=== PATIENT | female | born 1985 | race Caucasian/White ===

== ENCOUNTER 2018-12-25 15:51 | Emergency (ER) | payer MEDICAID ==
[~2018-12-25] VITALS: Ht 144.8 cm; Wt 52.2 kg
[~2018-12-25 15:51] MED LIST: ACETAMINOPHEN-1 EAC1 PO; AMOXICILLIN 50500 M1 PO; AMOXICILLIN 50500 MG PO; AMOXICILLIN875 MG PO; ANTIVERT25 MG PO; APAP W/CODEINE1 TA2 PO; APAP500 PO; ATIVAN0.5 MG PO; CEPHALEXIN 500500 M1; CLEOCIN HCL150 MG PO; CYMBALTA20 MG PO; DELSYM COU30 MG/5 M1 PO; EXCEDRIN CAPLE1 EACH PO; FLEXERIL PO; IBUPROFEN 200200 M1 PO; IBUPROFEN 800800 M1 PO; KEFLEX500 MG PO; LIDOCAINE VISC100 M1 MM; LIDOCAINE VISC100 M1 SWISH&SPIT; MEDROLDOSEPACK PO; MOTION RELIEF25 MG PO; NAPROSYN500 MG PO; NEURONTIN300 MG PO; NORCO 5-325 TA1 EACH PO; NYSTATIN15 GM TP; ONDANSETRON HCL4 M2 PO; ORADENT 0.1% DEN5 G1; PENICILLIN V P500 MG PO; POLYMYXIN B/TMP10 ML OP; PROMETHAZINE-D120 ML PO; TRAMADOL 50 MG50 MG PO; TYLENOL325 MG PO; VALIUM2 MG PO; ZPAK PO; ZYRTEC 10 MG TA10 M1 PO; ZYRTEC10 MG PO; [UNRECOGNIZED DRUG - SUPPLY] MC
[2018-12-25 16:04] VITALS: BP 117/74
[2018-12-25] MEDS ORDERED: ATIVAN0.5 MG PO (16:07)
[2018-12-25] MEDS ORDERED: BACTROBAN15 GM TOP (16:16)
[2018-12-25] MEDS ORDERED: ZOFRAN ODT4 MG PO (16:16)
== END 2018-12-25 16:24 | disposition home or self-care (01) ==
LOC: M.ERS 15:51
DX: B34.9 Viral infection, unspecified (principal); R11.2 Nausea with vomiting, unspecified; L98.9 Disorder of the skin and subcutaneous tissue, unspecified; F90.9 Attention-deficit hyperactivity disorder, unspecified type; F31.9 Bipolar disorder, unspecified; F41.9 Anxiety disorder, unspecified; F42.9 Obsessive-compulsive disorder, unspecified

== ENCOUNTER 2019-01-29 13:25 | Emergency (ER) | payer MEDICAID ==
[~2019-01-29] VITALS: Ht 144.8 cm; Wt 58.5 kg
[~2019-01-29 13:25] MED LIST changes: +BACTROBAN15 GM TOP; +ZOFRAN ODT4 MG PO
[2019-01-29] MEDS ORDERED: ACYCLOVIR 400400 MG PO (13:40)
[2019-01-29 14:44] VITALS: BP 116/78
== END 2019-01-29 14:45 | disposition home or self-care (01) ==
LOC: M.ERS 13:25
DX: S09.8XXA Other specified injuries of head, initial encounter (principal); M54.2 Cervicalgia; F90.9 Attention-deficit hyperactivity disorder, unspecified type; F31.9 Bipolar disorder, unspecified; F41.9 Anxiety disorder, unspecified; Z98.890 Other specified postprocedural states; W22.8XXA Striking against or struck by other objects, initial encounter; Y93.89 Activity, other specified; Y92.89 Other specified places as the place of occurrence of the external cause; Y99.8 Other external cause status

== ENCOUNTER 2019-06-23 20:51 | Emergency (ER) | payer MEDICAID ==
[~2019-06-23] VITALS: Ht 144.8 cm; Wt 58.5 kg
[~2019-06-23 20:51] MED LIST changes: +ACYCLOVIR 400400 MG PO; +NAPROSYN500 M1 PO
[2019-06-23] MEDS ORDERED: PROMETH-CODEIN 65 ML PO (22:20)
[2019-06-23] MEDS ORDERED: AUGMENTIN 875-1 EACH PO (22:20)
[2019-06-23 22:30] VITALS: BP 115/65
== END 2019-06-23 22:30 | disposition home or self-care (01) ==
LOC: M.ERS 20:51
DX: J18.9 Pneumonia, unspecified organism (principal); R06.02 Shortness of breath; H92.03 Otalgia, bilateral; F90.9 Attention-deficit hyperactivity disorder, unspecified type; F32.9 Major depressive disorder, single episode, unspecified; F41.9 Anxiety disorder, unspecified; Z88.8 Allergy status to other drugs, medicaments and biological substances

== ENCOUNTER 2019-06-24 23:01 | Emergency (ER) | payer MEDICAID ==
[~2019-06-24] VITALS: Ht 144.8 cm; Wt 58.5 kg
[~2019-06-24 23:01] MED LIST changes: +AUGMENTIN 875-1 EACH PO; +PROMETH-CODEIN 65 ML PO
[2019-06-25] MEDS ORDERED: XANAX 1 MG TABLE1 MG PO (00:52)
[2019-06-25] MEDS ORDERED: ALBUTEROL2.5 MG/31 INH (00:52)
[2019-06-25] MEDS ORDERED: LORAZEPAM 0.50.5 M1 PO (01:51)
[2019-06-25 01:55] VITALS: BP 106/63
== END 2019-06-25 01:58 | disposition home or self-care (01) ==
LOC: M.ERS 23:01
DX: J18.9 Pneumonia, unspecified organism (principal); F90.9 Attention-deficit hyperactivity disorder, unspecified type; F31.9 Bipolar disorder, unspecified; F41.9 Anxiety disorder, unspecified; F42.9 Obsessive-compulsive disorder, unspecified; Z88.8 Allergy status to other drugs, medicaments and biological substances; Z98.890 Other specified postprocedural states

== ENCOUNTER 2019-06-30 21:06 | Emergency (ER) | payer MEDICAID ==
[~2019-06-30] VITALS: Ht 144.8 cm; Wt 58.5 kg
[~2019-06-30 21:06] MED LIST changes: +ALBUTEROL2.5 MG/31 INH; +LORAZEPAM 0.50.5 M1 PO; +XANAX 1 MG TABLE1 MG PO
[2019-06-30 21:53] LABS: URINE BILIRUBIN NEGATIVE (Negative); URINE BLOOD 2+ (Negative); URINE CLARITY CLEAR; URINE COLOR STRAW; URINE GLUCOSE-RANDOM NEGATIVE (Negative); URINE KETONES NEGATIVE (Negative); URINE LEUKOCYTES-REFLEX NEGATIVE (Negative); URINE NITRITE-REFLEX NEGATIVE (Negative); URINE PROTEIN NEGATIVE (Negative); URINE SPECIFIC GRAVITY <= 1.005 (1.005-1.030); URINE UROBILINOGEN 0.2 E.U./dl (0.2-1.0)
[2019-06-30 22:18] LABS: CASTS None Seen /LPF (None Seen); SQUAMOUS 4-10 Moderate /LPF (0-3)
[2019-06-30 22:19] LABS: BACTERIA-REFLEX 1-9 Few /HPF (None Seen); CRYSTALS None Seen /LPF (None Seen); URINE RBC 0-2 Rare /HPF (0-2); URINE WBC-REFLEX 0-5 Rare /HPF (0-5)
[2019-06-30] MEDS ORDERED: XARELTO15 MG PO (23:52)
[2019-06-30] MEDS ORDERED: DIFLUCAN150 MG PO (23:53)
[2019-07-01] MEDS ORDERED: KETOCONAZOLE15 GM TOP (00:05)
[2019-07-01 00:37] VITALS: BP 107/59
== END 2019-07-01 00:40 | disposition home or self-care (01) ==
LOC: M.ERS 21:06
PROVIDERS: Emergency Medicine
DX: N76.0 Acute vaginitis (principal); I82.611 Acute embolism and thrombosis of superficial veins of right upper extremity; F90.9 Attention-deficit hyperactivity disorder, unspecified type; F32.9 Major depressive disorder, single episode, unspecified; F41.9 Anxiety disorder, unspecified; Z88.6 Allergy status to analgesic agent; Z98.890 Other specified postprocedural states

== ENCOUNTER 2019-07-19 16:51 | Emergency (ER) | payer MEDICAID ==
[~2019-07-19] VITALS: Ht 144.8 cm; Wt 56.7 kg
[~2019-07-19 16:51] MED LIST changes: +DIFLUCAN150 MG PO; +KETOCONAZOLE15 GM TOP; +XARELTO15 MG PO
[2019-07-19 17:04] VITALS: BP 124/80
== END 2019-07-19 17:19 | disposition home or self-care (01) ==
LOC: M.ERS 16:51
DX: L85.3 Xerosis cutis (principal); F90.9 Attention-deficit hyperactivity disorder, unspecified type; F31.9 Bipolar disorder, unspecified; F41.9 Anxiety disorder, unspecified; Z88.6 Allergy status to analgesic agent; Z98.890 Other specified postprocedural states

== ENCOUNTER 2019-08-01 18:53 | Emergency (ER) | payer MEDICAID ==
[~2019-08-01] VITALS: Ht 144.8 cm; Wt 56.7 kg
[2019-08-01] MEDS ORDERED: ELIQUIS2.5 MG PO (18:59)
[2019-08-01] MEDS ORDERED: DIFLUCAN150 M1 PO (19:25)
[2019-08-01] MEDS ORDERED: ZPAK PO (19:25)
[2019-08-01] MEDS ORDERED: ZANAFLEX4 MG PO (19:25)
[2019-08-01 19:36] VITALS: BP 122/74
== END 2019-08-01 19:37 | disposition home or self-care (01) ==
LOC: M.ERS 18:53
DX: S16.1XXA Strain of muscle, fascia and tendon at neck level, initial encounter (principal); J20.9 Acute bronchitis, unspecified; H92.02 Otalgia, left ear; F41.9 Anxiety disorder, unspecified; F90.9 Attention-deficit hyperactivity disorder, unspecified type; F31.9 Bipolar disorder, unspecified; Z88.6 Allergy status to analgesic agent; Z98.890 Other specified postprocedural states; X58.XXXA Exposure to other specified factors, initial encounter; Y93.89 Activity, other specified; Y92.89 Other specified places as the place of occurrence of the external cause; Y99.8 Other external cause status

== ENCOUNTER 2019-09-09 15:35 | Emergency (ER) | payer MEDICAID ==
[~2019-09-09] VITALS: Ht 157.5 cm; Wt 49.9 kg
[~2019-09-09 15:35] MED LIST changes: +DIFLUCAN150 M1 PO; +ELIQUIS2.5 MG PO; +ZANAFLEX4 MG PO
[2019-09-09 15:57] LABS: URINE BILIRUBIN NEGATIVE (Negative); URINE BLOOD NEGATIVE (Negative); URINE CLARITY CLEAR; URINE COLOR YELLOW; URINE GLUCOSE-RANDOM NEGATIVE (Negative); URINE KETONES NEGATIVE (Negative); URINE NITRITE-REFLEX NEGATIVE (Negative); URINE PROTEIN NEGATIVE (Negative); URINE SPECIFIC GRAVITY 1.015 (1.005-1.030); URINE UROBILINOGEN 0.2 E.U./dl (0.2-1.0)
[2019-09-09 15:59] LABS: URINE LEUKOCYTES-REFLEX 3+ (Negative)
[2019-09-09 16:07] LABS: SQUAMOUS >10 Many /LPF (0-3)
[2019-09-09 16:08] LABS: BACTERIA-REFLEX >30 Many /HPF (None Seen); MUCUS 0-3 Light strn/LPF (None Seen); URINE RBC 0-2 Rare /HPF (0-2)
[2019-09-09] MEDS ORDERED: DOXYCYCLINE 10100 MG PO ×2 (16:08→16:09)
[2019-09-09 16:09] LABS: CASTS None Seen /LPF (None Seen); CRYSTALS None Seen /LPF (None Seen)
[2019-09-09] MEDS ORDERED: ONDANSETRON HCL4 M2 PO ×2 (16:22)
[2019-09-09 16:25] VITALS: BP 139/79
== END 2019-09-09 16:27 | disposition home or self-care (01) ==
LOC: M.ERS 15:35
PROVIDERS: Nurse Practitioner Family
DX: A59.9 Trichomoniasis, unspecified (principal); N72 Inflammatory disease of cervix uteri; F90.9 Attention-deficit hyperactivity disorder, unspecified type; F31.9 Bipolar disorder, unspecified; F41.9 Anxiety disorder, unspecified; Z88.6 Allergy status to analgesic agent; Z98.890 Other specified postprocedural states

== ENCOUNTER 2019-09-26 12:28 | Emergency (ER) | payer MEDICAID ==
[~2019-09-26] VITALS: Ht 144.8 cm; Wt 70.3 kg
[~2019-09-26 12:28] MED LIST changes: +DOXYCYCLINE 10100 MG PO
[2019-09-26 12:59] LABS: URINE BILIRUBIN NEGATIVE (Negative); URINE BLOOD NEGATIVE (Negative); URINE CLARITY CLEAR; URINE COLOR YELLOW; URINE GLUCOSE-RANDOM NEGATIVE (Negative); URINE KETONES NEGATIVE (Negative); URINE LEUKOCYTES-REFLEX NEGATIVE (Negative); URINE NITRITE-REFLEX NEGATIVE (Negative); URINE PROTEIN NEGATIVE (Negative); URINE SPECIFIC GRAVITY <= 1.005 (1.005-1.030); URINE UROBILINOGEN 0.2 E.U./dl (0.2-1.0)
[2019-09-26 13:03] LABS: ABSOLUTE EOSINOPHILS 0.2 thou/uL (0.0-0.7); ABSOLUTE LYMPHOCYTES 2.5 thou/uL (0.8-5.3); ABSOLUTE MONOCYTES 0.5 thou/uL (0.0-1.2); ABSOLUTE NEUTROPHILS 3.3 thou/uL (1.6-8.1); BASOPHILS 0.3 %; EOSINOPHILS 3.4 %; HEMOGLOBIN 13.9 gm/dL (12.0-15.0); MCH 31.3 pg (26.0-34.0); MCHC 33.9 g/dL (28.0-37.0); MCV 92.2 fL (80.0-100.0); MONOCYTES 6.9 %; MPV 7.9 fl. (7.2-11.1); NUCLEATED RBCS 0 /100WBC; PLATELET COUNT* 323 thou/uL (150-400); POLYS 50.4 %; RBC 4.44 mil/uL (4.20-5.00); RDW-CV 13.3 % (10.5-14.5); WBC 6.5 thou/uL (4.0-11.0)
[2019-09-26 13:10] LABS: CALCIUM 9.5 mg/dL (8.5-10.1); CREATININE 0.9 mg/dL (0.6-1.3); POTASSIUM 3.9 mmol/L (3.5-5.1)
[2019-09-26 13:14] LABS: TOTAL BILIRUBIN 0.5 mg/dL (<0.1-1.0); TOTAL PROTEIN 6.8 g/dL (6.4-8.2)
[2019-09-26] MEDS ORDERED: CITRATE OF MAG296 ML PO ×2 (13:50→13:52)
[2019-09-26] MEDS ORDERED: MIRALAX119 GM PO ×2 (13:50→13:52)
[2019-09-26 13:58] VITALS: BP 109/77
== END 2019-09-26 13:59 | disposition home or self-care (01) ==
LOC: M.ERS 12:28
PROVIDERS: Nurse Practitioner Family
DX: K59.00 Constipation, unspecified (principal); F41.9 Anxiety disorder, unspecified; F31.9 Bipolar disorder, unspecified; F90.9 Attention-deficit hyperactivity disorder, unspecified type; Z88.6 Allergy status to analgesic agent; Z98.890 Other specified postprocedural states

== ENCOUNTER 2019-10-03 18:45 | Emergency (ER) | payer MEDICAID ==
[~2019-10-03] VITALS: Ht 144.8 cm; Wt 59.0 kg
[~2019-10-03 18:45] MED LIST changes: +CITRATE OF MAG296 ML PO; +MIRALAX119 GM PO
[2019-10-03] MEDS ORDERED: ZOVIRAX400 MG PO (18:59)
[2019-10-03 19:25] LABS: MCH 31.3 pg (26.0-34.0)
[2019-10-03 19:27] LABS: ABSOLUTE BASOPHILS 0.1 thou/uL (0.0-0.2); ABSOLUTE EOSINOPHILS 0.2 thou/uL (0.0-0.7); ABSOLUTE LYMPHOCYTES 3.5 thou/uL (0.8-5.3); ABSOLUTE MONOCYTES 0.4 thou/uL (0.0-1.2); ABSOLUTE NEUTROPHILS 3.5 thou/uL (1.6-8.1); BASOPHILS 1.3 %; HEMATOCRIT 41.3 % (37.0-47.0); LYMPHOCYTES 45.7 %; MCHC 33.8 g/dL (28.0-37.0); MCV 92.5 fL (80.0-100.0); MONOCYTES 4.9 %; MPV 7.8 fl. (7.2-11.1); NUCLEATED RBCS 0 /100WBC; PLATELET COUNT* 338 thou/uL (150-400); POLYS 45.1 %; RBC 4.47 mil/uL (4.20-5.00); WBC 7.7 thou/uL (4.0-11.0)
[2019-10-03 19:33] LABS: CREATININE 0.9 mg/dL (0.6-1.3); POTASSIUM 3.7 mmol/L (3.5-5.1)
[2019-10-03 19:34] LABS: URINE BILIRUBIN NEGATIVE (Negative); URINE BLOOD NEGATIVE (Negative); URINE CLARITY CLEAR; URINE COLOR STRAW; URINE GLUCOSE-RANDOM NEGATIVE (Negative); URINE KETONES NEGATIVE (Negative); URINE LEUKOCYTES-REFLEX NEGATIVE (Negative); URINE NITRITE-REFLEX NEGATIVE (Negative); URINE PROTEIN NEGATIVE (Negative); URINE SPECIFIC GRAVITY <= 1.005 (1.005-1.030); URINE UROBILINOGEN 0.2 E.U./dl (0.2-1.0)
[2019-10-03 19:37] LABS: TOTAL BILIRUBIN 0.2 mg/dL (<0.1-1.0); TOTAL PROTEIN 6.9 g/dL (6.4-8.2)
[2019-10-03] MEDS ORDERED: ONDANSETRON HCL4 M2 PO (20:20)
[2019-10-03 20:36] VITALS: BP 132/72
--- NOTE | 2019-10-04 10:36 | EKG ---
[place] [address] ELECTROCARDIOGRAM REPORT Name: ANTONINO MONTES Room: [facility]#: [id number] Admission: 10/03/19 Attend Phys: Discharge: 10/03/19 Date of : 87 Report #: [id number] THIS REPORT FOR: //name// [facility] ED Test Date: 2019-10-03 Test Time: 19:22:27 Pat Name: ANTONINO MONTES Department: Room: Gender: F Cycle Consultant: [place] : 1985 Requested By: Mary Estevez Order Number: [id number] MD: Didier Farias Measurements Intervals [place] Rate: 82 P: 55 DE: 202 QRS: 31 QRSD: 91 T: 24 QT: 372 QTc: 435 Interpretive Statements Sinus rhythm Borderline prolonged [place] interval Baseline wander in lead(s) V1 Compared to ECG 01/20/2013 20:02:07 No significant changes Electronically Signed On 10-04-2019 10:36:47 FRUIT AND VEGETABLE PARER by Didier Farias [email or web address] <ELECTRONICALLY SIGNED> By: Didier Farias MD, [facility] 10/04/19 1036 21 21 Didier Farias MD, FAC /EPI
== END 2019-10-03 20:37 | disposition home or self-care (01) ==
LOC: M.ERS 18:45
PROVIDERS: Nurse Practitioner Family
DX: R42 Dizziness and giddiness (principal); R11.0 Nausea; K59.00 Constipation, unspecified; F90.9 Attention-deficit hyperactivity disorder, unspecified type; F31.9 Bipolar disorder, unspecified; F41.9 Anxiety disorder, unspecified; Z88.6 Allergy status to analgesic agent

== ENCOUNTER 2019-10-27 17:31 | Emergency (ER) | payer MEDICAID ==
[~2019-10-27] VITALS: Ht 144.8 cm; Wt 57.6 kg
[~2019-10-27 17:31] MED LIST changes: +ZOVIRAX400 MG PO
[2019-10-27] MEDS ORDERED: NOHOMEMEDICATIONS (17:45)
[2019-10-27 18:13] LABS: CALCIUM 9.2 mg/dL (8.5-10.1); CREATININE 0.9 mg/dL (0.6-1.3); POTASSIUM 3.8 mmol/L (3.5-5.1)
[2019-10-27] MEDS ORDERED: NORCO 5-325 TA1 EAC1 PO (18:26)
[2019-10-27] MEDS ORDERED: FLEXERIL PO (18:26)
[2019-10-27 18:35] VITALS: BP 118/68
--- NOTE | 2019-10-28 10:20 | EKG ---
[place] [address] ELECTROCARDIOGRAM REPORT Name: ANTONINO MONTES Room: [facility]#: [id number] Admission: 10/27/19 Attend Phys: Discharge: 10/27/19 Date of : [birth year] Report #: [id number] THIS REPORT FOR: //name// [facility] ED Test Date: 2019-10-27 Test Time: 18:02:06 Pat Name: ANTONINO MONTES Department: Room: Gender: F Bell Cleaner: ANGIE : 1985 Requested By: Ry Reed Order Number: [id number] MD: Jace Morataya Measurements Intervals [place] Rate: 68 P: 56 MA: 202 QRS: 40 QRSD: 94 T: 29 QT: 389 QTc: 414 Interpretive Statements Sinus rhythm Borderline prolonged MA interval Baseline wander in lead(s) V1 Compared to ECG 10/03/2019 19:22:27 No significant changes Electronically Signed On 10-28-2019 10:20:29 QUALITY REVIEWER by Jace Morataya [email or web address] <ELECTRONICALLY SIGNED> By: Jace Morataya MD, [facility] 10/28/19 1020 01 01 Jace Morataya MD, [facility] /EPI
== END 2019-10-27 18:36 | disposition home or self-care (01) ==
LOC: M.ERS 17:31
PROVIDERS: Emergency Medicine Emergency Medical Services
DX: S46.002A Unspecified injury of muscle(s) and tendon(s) of the rotator cuff of left shoulder, initial encounter (principal); M25.512 Pain in left shoulder; M54.2 Cervicalgia; F41.9 Anxiety disorder, unspecified; F90.9 Attention-deficit hyperactivity disorder, unspecified type; F32.9 Major depressive disorder, single episode, unspecified; Z88.8 Allergy status to other drugs, medicaments and biological substances; X50.0XXA Overexertion from strenuous movement or load, initial encounter; Y93.89 Activity, other specified; Y92.89 Other specified places as the place of occurrence of the external cause; Y99.8 Other external cause status

== ENCOUNTER 2020-01-14 17:46 | Emergency (ER) | payer MEDICAID ==
[~2020-01-14] VITALS: Ht 144.8 cm; Wt 54.9 kg
[~2020-01-14 17:46] MED LIST changes: +NOHOMEMEDICATIONS; +NORCO 5-325 TA1 EAC1 PO
[2020-01-14] MEDS ORDERED: RISPERDAL0.5 MG PO (18:05)
[2020-01-14 19:43] VITALS: BP 126/76
--- NOTE | 2020-01-15 16:46 | EKG ---
[place] [address] ELECTROCARDIOGRAM REPORT Name: ANTONINO MONTES Room: [facility]#: [id number] Admission: 01/14/20 Attend Phys: Discharge: 01/14/20 Date of : 87 Date of Service: 01/14/20 1808 Report #: [id number] THIS REPORT FOR: //name// [facility] ED Test Date: 2020-01-14 Test Time: 18:08:44 Pat Name: ANTONINO LEONSIMON Department: Room: Gender: F Chart Calculator: : 1985 Requested By: Ry Reed Order Number: [id number] MD: Didier Farias Measurements Intervals [place] Rate: 86 P: 54 WI: 179 QRS: 35 QRSD: 90 T: 24 QT: 353 QTc: 423 Interpretive Statements Sinus rhythm Compared to ECG 10/27/2019 18:02:06 No significant changes Electronically Signed On 01-15-2020 16:45:47 SALES SUPERINTENDENT by Didier Farias [email or web address] <ELECTRONICALLY SIGNED> By: Didier Farias MD, [facility] 01/15/20 1645 180 07 Didier Farias MD, FAC /EPI
== END 2020-01-14 19:43 | disposition left against medical advice (07) ==
LOC: M.ERS 17:46
DX: Z53.21 Procedure and treatment not carried out due to patient leaving prior to being seen by health care provider (principal)

== ENCOUNTER 2020-02-22 19:46 | Emergency (ER) | payer MEDICAID ==
[~2020-02-22] VITALS: Ht 144.8 cm; Wt 56.7 kg
[~2020-02-22 19:46] MED LIST changes: +RISPERDAL0.5 MG PO
[2020-02-22] MEDS ORDERED: ACYCLOVIR 200200 MG PO (19:59)
[2020-02-22] MEDS ORDERED: IBUPROFEN100 MG/5 M PO (20:06)
[2020-02-22] MEDS ORDERED: AMOXICILLI400 MG/5 M PO (20:06)
[2020-02-22 20:18] VITALS: BP 111/69
== END 2020-02-22 20:18 | disposition home or self-care (01) ==
LOC: M.ERS 19:46
DX: K08.89 Other specified disorders of teeth and supporting structures (principal); F31.9 Bipolar disorder, unspecified; F90.9 Attention-deficit hyperactivity disorder, unspecified type; F41.9 Anxiety disorder, unspecified; Z98.890 Other specified postprocedural states; Z88.8 Allergy status to other drugs, medicaments and biological substances

== ENCOUNTER 2020-03-25 21:54 | Emergency (ER) | payer MEDICAID ==
[~2020-03-25] VITALS: Ht 144.8 cm; Wt 54.4 kg
[~2020-03-25 21:54] MED LIST changes: +ACYCLOVIR 200200 MG PO; +AMOXICILLI400 MG/5 M PO; +IBUPROFEN100 MG/5 M PO
[2020-03-25 22:01] VITALS: BP 139/112
== END 2020-03-25 22:18 | disposition home or self-care (01) ==
LOC: M.ERS 21:54
DX: K12.0 Recurrent oral aphthae (principal); K02.9 Dental caries, unspecified; F90.9 Attention-deficit hyperactivity disorder, unspecified type; F31.9 Bipolar disorder, unspecified; F41.9 Anxiety disorder, unspecified; Z98.890 Other specified postprocedural states; Z88.8 Allergy status to other drugs, medicaments and biological substances

== ENCOUNTER 2020-04-07 21:40 | Emergency (ER) | payer MEDICAID ==
[~2020-04-07] VITALS: Ht 144.8 cm; Wt 54.4 kg
[2020-04-07 22:01] LABS: URINE BILIRUBIN NEGATIVE (Negative); URINE BLOOD NEGATIVE (Negative); URINE CLARITY CLEAR; URINE COLOR STRAW; URINE GLUCOSE-RANDOM NEGATIVE (Negative); URINE KETONES NEGATIVE (Negative); URINE LEUKOCYTES-REFLEX TRACE (Negative); URINE NITRITE-REFLEX NEGATIVE (Negative); URINE PROTEIN NEGATIVE (Negative); URINE SPECIFIC GRAVITY <= 1.005 (1.005-1.030); URINE UROBILINOGEN 0.2 E.U./dl (0.2-1.0)
[2020-04-07 22:08] LABS: BACTERIA-REFLEX 1-9 Few /HPF (None Seen); CASTS None Seen /LPF (None Seen); MUCUS None Seen strn/LPF (None Seen); SQUAMOUS 4-10 Moderate /LPF (0-3)
[2020-04-07 22:09] LABS: CRYSTALS None Seen /LPF (None Seen); URINE RBC None Seen /HPF (0-2); URINE WBC-REFLEX 0-5 Rare /HPF (0-5)
[2020-04-07] MEDS ORDERED: BACTRIM DS TAB1 EACH PO (22:22)
[2020-04-07 22:33] VITALS: BP 110/61
== END 2020-04-07 22:35 | disposition home or self-care (01) ==
LOC: M.ERS 21:40
PROVIDERS: Emergency Medicine
DX: N34.2 Other urethritis (principal); Z88.6 Allergy status to analgesic agent; Z98.890 Other specified postprocedural states

== ENCOUNTER 2020-05-25 22:50 | Emergency (ER) | payer MEDICAID ==
[~2020-05-25] VITALS: Ht 144.8 cm; Wt 54.4 kg
[~2020-05-25 22:50] MED LIST changes: +BACTRIM DS TAB1 EACH PO
[2020-05-25] MEDS ORDERED: HYDROCODON-ACE1 EAC8 PO (23:52)
[2020-05-25] MEDS ORDERED: PENICILLIN VK250 MG PO (23:52)
[2020-05-26] VITALS: BP 112/68
== END 2020-05-26 00:01 | disposition home or self-care (01) ==
LOC: M.ERS 22:50
DX: K08.89 Other specified disorders of teeth and supporting structures (principal); F31.9 Bipolar disorder, unspecified; F41.9 Anxiety disorder, unspecified; F90.9 Attention-deficit hyperactivity disorder, unspecified type; Z88.8 Allergy status to other drugs, medicaments and biological substances

== ENCOUNTER 2020-06-06 20:12 | Emergency (ER) | payer MEDICAID ==
[~2020-06-06] VITALS: Ht 144.8 cm; Wt 54.4 kg
[~2020-06-06 20:12] MED LIST changes: +HYDROCODON-ACE1 EAC8 PO; +PENICILLIN VK250 MG PO
[2020-06-06 21:57] VITALS: BP 110/67
== END 2020-06-06 21:58 | disposition home or self-care (01) ==
LOC: M.ERS 20:12
DX: T18.128A Food in esophagus causing other injury, initial encounter (principal); F31.9 Bipolar disorder, unspecified; F41.9 Anxiety disorder, unspecified; F17.210 Nicotine dependence, cigarettes, uncomplicated; Z98.890 Other specified postprocedural states; Z88.8 Allergy status to other drugs, medicaments and biological substances; X58.XXXA Exposure to other specified factors, initial encounter; Y93.89 Activity, other specified; Y92.89 Other specified places as the place of occurrence of the external cause; Y99.8 Other external cause status; Z98.51 Tubal ligation status

== ENCOUNTER 2020-06-16 21:38 | Emergency (ER) | payer MEDICAID ==
[~2020-06-16] VITALS: Ht 144.8 cm; Wt 54.4 kg
[2020-06-16 22:34] LABS: URINE BILIRUBIN NEGATIVE (Negative); URINE BLOOD NEGATIVE (Negative); URINE CLARITY CLEAR; URINE COLOR STRAW; URINE GLUCOSE-RANDOM NEGATIVE (Negative); URINE KETONES NEGATIVE (Negative); URINE LEUKOCYTES-REFLEX NEGATIVE (Negative); URINE NITRITE-REFLEX NEGATIVE (Negative); URINE PROTEIN NEGATIVE (Negative); URINE SPECIFIC GRAVITY <= 1.005 (1.005-1.030); URINE UROBILINOGEN 0.2 E.U./dl (0.2-1.0)
[2020-06-16 23:21] VITALS: BP 98/58
== END 2020-06-16 23:22 | disposition home or self-care (01) ==
LOC: M.ERS 21:38
PROVIDERS: Emergency Medicine
DX: M54.6 Pain in thoracic spine (principal); R10.30 Lower abdominal pain, unspecified; F17.210 Nicotine dependence, cigarettes, uncomplicated; Z88.6 Allergy status to analgesic agent; Z98.890 Other specified postprocedural states

== ENCOUNTER 2020-08-18 10:51 | Emergency (ER) | payer MEDICAID ==
[~2020-08-18] VITALS: Ht 144.8 cm; Wt 56.7 kg
[2020-08-18 11:29] LABS: URINE BILIRUBIN NEGATIVE (Negative); URINE BLOOD NEGATIVE (Negative); URINE CLARITY CLEAR; URINE COLOR YELLOW; URINE GLUCOSE-RANDOM NEGATIVE (Negative); URINE KETONES NEGATIVE (Negative); URINE LEUKOCYTES-REFLEX 1+ (Negative); URINE NITRITE-REFLEX NEGATIVE (Negative); URINE PROTEIN NEGATIVE (Negative); URINE UROBILINOGEN 0.2 E.U./dl (0.2-1.0)
[2020-08-18 11:36] LABS: SQUAMOUS >10 Many /LPF (0-3)
[2020-08-18 11:38] LABS: CASTS None Seen /LPF (None Seen); CRYSTALS None Seen /LPF (None Seen); MUCUS 4-6 Moderate strn/LPF (None Seen); URINE RBC 0-2 Rare /HPF (0-2); URINE WBC-REFLEX 0-5 Rare /HPF (0-5)
[2020-08-18] MEDS ORDERED: FLAGYL500 M1 PO (12:46)
[2020-08-18] MEDS ORDERED: BACTRIM DS TAB1 EAC1 PO (12:46)
[2020-08-18 13:10] VITALS: BP 100/62
== END 2020-08-18 13:10 | disposition home or self-care (01) ==
LOC: M.ERS 10:51
PROVIDERS: Emergency Medicine Emergency Medical Services
DX: N76.0 Acute vaginitis (principal); B96.89 Other specified bacterial agents as the cause of diseases classified elsewhere; N39.0 Urinary tract infection, site not specified; F17.210 Nicotine dependence, cigarettes, uncomplicated; Z98.890 Other specified postprocedural states; Z88.6 Allergy status to analgesic agent

== ENCOUNTER 2020-08-19 14:13 | Emergency (ER) | payer MEDICAID ==
[~2020-08-19] VITALS: Ht 144.8 cm; Wt 56.7 kg
[~2020-08-19 14:13] MED LIST changes: +BACTRIM DS TAB1 EAC1 PO; +FLAGYL500 M1 PO
[2020-08-19 16:09] VITALS: BP 113/77
== END 2020-08-19 16:10 | disposition home or self-care (01) ==
LOC: M.ERS 14:13
DX: N76.0 Acute vaginitis (principal); Z88.8 Allergy status to other drugs, medicaments and biological substances

== ENCOUNTER 2020-08-24 13:32 | Emergency (ER) | payer MEDICAID ==
[~2020-08-24] VITALS: Ht 144.8 cm; Wt 56.7 kg
[2020-08-24 14:40] LABS: URINE BILIRUBIN NEGATIVE (Negative); URINE BLOOD 3+ (Negative); URINE CLARITY CLEAR; URINE COLOR ORANGE; URINE GLUCOSE-RANDOM NEGATIVE (Negative); URINE KETONES NEGATIVE (Negative); URINE LEUKOCYTES-REFLEX NEGATIVE (Negative); URINE NITRITE-REFLEX NEGATIVE (Negative); URINE PROTEIN 1+ (Negative); URINE SPECIFIC GRAVITY <= 1.005 (1.005-1.030); URINE UROBILINOGEN 0.2 E.U./dl (0.2-1.0)
[2020-08-24 14:48] LABS: SQUAMOUS >10 Many /LPF (0-3)
[2020-08-24 14:49] LABS: BACTERIA-REFLEX 1-9 Few /HPF (None Seen); CASTS None Seen /LPF (None Seen); MUCUS 0-3 Light strn/LPF (None Seen); URINE RBC >20 Many /HPF (0-2); URINE WBC-REFLEX 0-5 Rare /HPF (0-5)
[2020-08-24 14:50] LABS: CRYSTALS None Seen /LPF (None Seen)
[2020-08-24 14:59] VITALS: BP 115/70
== END 2020-08-24 15:00 | disposition home or self-care (01) ==
LOC: M.ERS 13:32
PROVIDERS: Family Medicine
DX: R53.1 Weakness (principal); F31.9 Bipolar disorder, unspecified; F41.9 Anxiety disorder, unspecified; Z98.890 Other specified postprocedural states; Z88.8 Allergy status to other drugs, medicaments and biological substances

== ENCOUNTER 2020-09-12 18:30 | Emergency (ER) | payer MEDICAID ==
[~2020-09-12] VITALS: Ht 144.8 cm; Wt 52.2 kg
[2020-09-12 19:41] LABS: URINE BILIRUBIN NEGATIVE (Negative); URINE BLOOD NEGATIVE (Negative); URINE CLARITY CLEAR; URINE COLOR YELLOW; URINE GLUCOSE-RANDOM NEGATIVE (Negative); URINE KETONES NEGATIVE (Negative); URINE LEUKOCYTES-REFLEX NEGATIVE (Negative); URINE NITRITE-REFLEX NEGATIVE (Negative); URINE PROTEIN NEGATIVE (Negative); URINE SPECIFIC GRAVITY 1.025 (1.005-1.030); URINE UROBILINOGEN 0.2 E.U./dl (0.2-1.0)
[2020-09-12] MEDS ORDERED: METROGEL-VAGINA70 GM VAG (21:09)
[2020-09-12 21:34] VITALS: BP 127/87
== END 2020-09-12 21:35 | disposition home or self-care (01) ==
LOC: M.ERS 18:30
PROVIDERS: Nurse Practitioner Family
DX: L29.2 Pruritus vulvae (principal); N89.8 Other specified noninflammatory disorders of vagina; Z88.8 Allergy status to other drugs, medicaments and biological substances; Z88.2 Allergy status to sulfonamides

== ENCOUNTER 2021-03-02 19:54 | Emergency (ER) | payer MEDICAID ==
[~2021-03-02] VITALS: Ht 144.8 cm; Wt 61.2 kg
[~2021-03-02 19:54] MED LIST changes: +METROGEL-VAGINA70 GM VAG
[2021-03-02] MEDS ORDERED: AMOXICILLIN 50500 MG PO (20:24)
[2021-03-02] MEDS ORDERED: LIDOCAINE VISC100 ML SWISH&SPIT (20:24)
[2021-03-02 20:32] VITALS: BP 124/59
== END 2021-03-02 20:33 | disposition home or self-care (01) ==
LOC: M.ERS 19:54
DX: K01.1 Impacted teeth (principal); Z88.6 Allergy status to analgesic agent; Z98.890 Other specified postprocedural states; Z88.2 Allergy status to sulfonamides; Z88.1 Allergy status to other antibiotic agents